=== PATIENT | female | born 1975 | race American Indian/Alaskan Native ===

== ENCOUNTER 2016-08-26 20:57 | Emergency (ER) | payer OTHER ==
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
[2016-08-26] MEDS ORDERED: Ketorolac 60 MG/2 ML SDV IM ONE (21:16)
[2016-08-26 23:48] VITALS: BP 113/55
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
== END 2016-08-26 23:55 | disposition home or self-care (01) ==
LOC: MW.ED 20:57
DX: S20.219A Contusion of unspecified front wall of thorax, initial encounter (principal); V49.50XA Passenger injured in collision with unspecified motor vehicles in traffic accident, initial encounter; Y92.410 Unspecified street and highway as the place of occurrence of the external cause
CPT/HCPCS: 71010; 71100; 96374; 99284; G0390; J1885; 99283

== ENCOUNTER 2016-09-02 09:16 | Emergency (ER) | payer SELFPAY ==
--- NOTE | 2016-09-02 18:32 | EDM.PDOC ---
ED HPI GENERAL MEDICAL PROBLEM - General Chief Complaint: General Stated Complaint: SHOULDER PAIN Time Seen by Provider: 09/02/16 09:18 Source of Information: Reports: Other History Limitations: Reports: Other - Related Data Allergies Allergy/AdvReac Type Severity Reaction Status Date / Time No Known Allergies Allergy Verified 09/03/16 21:18 Home Meds: Home Meds . [No Known Home Meds] 01/14/16 [History] Past Medical History HEENT History: Reports: None Cardiovascular History: Reports: None Respiratory History: Reports: None Gastrointestinal History: Reports: None Genitourinary History: Reports: None PA[employer]ING [employer] History: Reports: None Musculoskeletal History: Reports: None Neurological History: Reports: None Psychiatric History: Reports: None Endocrine/Metabolic History: Reports: None Hematologic History: Reports: None Immunologic History: Reports: None Oncologic (Cancer) History: Reports: None Dermatologic History: Reports: None - Infectious Disease History Infectious Disease History: Reports: None - Past Surgical History Oncologic Surgical History: Reports: Other (See Below) Other Oncologic Surgeries/Procedures: cervical cancer cells removed Social & Family History - Family History Family Medical History: Noncontributory - Tobacco Use Smoking Status *Q: Never Smoker Second Hand Smoke Exposure: No - Caffeine Use Caffeine Use: Reports: None - Recreational Drug Use Recreational Drug Use: No ED ROS GENERAL - Review of Systems Review Of Systems: Unable To Obtain () ED EXAM, GENERAL - Physical Exam Exam: Not Obtained () Departure - Departure Time of Disposition: 09:50 Disposition: Left Without Being Seen 07 Condition: Undetermined Clinical Impression: Patient left without being seen - Discharge Information Referrals: PCPNone [Primary Care Provider] - Forms: ED Department Discharge Additional Instructions: Departure - Departure Disposition: Left Without Being Seen 07 Clinical Impression: Patient left without being seen Referrals: PCP,None [Primary Care Provider] - Forms: ED Department Discharge
== END 2016-09-02 09:49 | disposition left against medical advice (07) ==
LOC: MW.ED 09:16
DX: Z53.21 Procedure and treatment not carried out due to patient leaving prior to being seen by health care provider (principal)

== ENCOUNTER 2016-09-03 21:13 | Emergency (ER) | payer OTHER ==
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
[2016-09-03 23:32] VITALS: BP 140/88
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
== END 2016-09-03 23:32 | disposition home or self-care (01) ==
LOC: MW.ED 21:13
DX: S29.9XXA Unspecified injury of thorax, initial encounter (principal); Z98.890 Other specified postprocedural states; V89.2XXA Person injured in unspecified motor-vehicle accident, traffic, initial encounter; Y92.410 Unspecified street and highway as the place of occurrence of the external cause
CPT/HCPCS: 71101-26-LT; 71101-LT; 93005; 99282; 99285-25